=== PATIENT | male | born 1985 | race Caucasian/White ===

== ENCOUNTER → 2021-04-26 12:47 | Outpatient (CLI) | payer BC, SELFPAY ==
--- NOTE | 2021-04-26 13:01 | XR_ITS ---
FINAL REPORT CLINICAL HISTORY: RT anterior rib pain post fall 10 days ago with difficulty breathing FINDINGS: RIGHT RIB SERIES 4 views of the right ribs show no fractures. There is no pneumothorax or pleural fluid collection. Frontal chest radiograph is unremarkable. IMPRESSION: Negative right rib series. No pneumothorax. Reviewed, Interpreted and Dictated by Dickson Blanton III, MD Transcribed by Lizbeth Schafer Authenticated by Dickson Blanton III, MD on 04/26/2021 02:05:08 PM [facility]
== END ==
PROVIDERS: PCP Family Medicine; Visit Provider Family Medicine
DX: R07.89 Other chest pain (principal)
CPT/HCPCS: 71101